=== PATIENT | male | born 1945 | race Caucasian/White ===

== ENCOUNTER 2021-05-05 12:00 | Day surgery (SDC) | payer MEDICARE, OTHER ==
[~2021-05-05] VITALS: Ht 185.4 cm; Wt 97.8 kg
[~2021-05-05 12:00] MED LIST: PERCOCET 7.5-31 EACH PO; ZIAC 5-6.25 MG1 TAB PO
--- NOTE | 2021-05-05 14:46 | NUR ---
05/05/21 1446 Zayra Tenorio 1441-PATIENT ARRIVED TO PACU ON 2L NC RR EVEN LAYING LEFT LATERAL. PATIENT DROWSY AWAKE DENIES PAIN OR NAUSEA. ABDOMEN SOFT ENCOURAGED TO PASS GAS. IVF INFUSING. PATIENT DOZES BACK TO SLEEP.
--- NOTE | 2021-05-07 11:23 | OR ---
[facility] [address], [place] [address] Signed DATE OF OPERATION: 05/05/2021 SURGEON: Josefina Velez MD PREOPERATIVE DIAGNOSIS: History of colonic polyps; here for surveillance colonoscopy. POSTOPERATIVE DIAGNOSES: 1. Polyps x3. 2. Diverticulosis, sigmoid and left colon. PROCEDURES: Total colonoscopy to cecum with cold morcellation polypectomy x3. ANESTHESIA: Intravenous sedation with fentanyl 100 mcg and Versed 5 mg. INDICATIONS FOR THE PROCEDURE: This 76-year-old white man is a patient of Dr. Vasquez and is the of Kathryn Moya MD, [facility] radiologist. The patient underwent colonoscopy in [place], [place] three years ago and two polyps were excised at least. Review of his operative note shows that he had hot snare polypectomy of two cecal polyps and polypectomies elsewhere in the colon. The patient does have distant history of prostate resection for prostate carcinoma in 2003 and has no evidence of recurrence. He is here for surveillance colonoscopy, understand the risks of bleeding, infection, and perforation. FINDINGS: The prep was excellent. Complete colonoscopy was undertaken to the cecum. There was most three, more probably two small polyps, all excised completely with cold morcellation technique. Diverticulosis was noted of the sigmoid and left colon. There were no complications. DESCRIPTION OF PROCEDURE: The patient was brought to the endoscopy suite and placed in lateral decubitus position, given intravenous sedation to the point of slurred speech and nystagmus with full cardiopulmonary monitoring. Digital rectal examination was normal. An Olympus video colonoscope was passed into the rectum and manipulated into the sigmoid, where diverticular changes were noted. The scope was advanced beyond this Electronically Signed By: JOSEFINA VELEZ MD 05/07/21 1123 PATIENT NAME: THOM MOYA OPERATIVE REPORT DATE OF : 47 REPORT #: [id number] PHYSICIAN: JOSEFINA VELEZ MD PCP: GADIEL VASQUEZ MD REPORT IS CONFIDENTIAL AND NOT TO BE RELEASED WITHOUT AUTHORIZATION [facility] [address] [place], [place] [address] Signed ultimately to the cecum. The ileocecal valve and appendiceal orifice were normal. Scope was withdrawn. Examination showed in the mid ascending colon, a small sessile polyp, this was excised with single morcellation biopsy and passed for pathology. The scope was further withdrawn and in the proximal descending colon there was a small sessile polyp, similarly excised. Further withdrawal showed a mucosal lesion, which was of uncertain etiology, possibly hyperplasia only, it was excised as well. Diverticula were once again seen in the sigmoid colon. The scope was withdrawn to the rectum. There were few possible arteriovenous malformation changes, but nothing significant really. Retroflexed view showed no sign of internal hemorrhoidal changes. Scope was straightened, withdrawn, and removed. The patient was taken to the recovery room in good condition. CONCLUDING DIAGNOSIS: Polyps x3. PLAN: Recommend repeat colonoscopy in 3-5 years or sooner if clinically indicated. Recommend high-fiber diet as well regarding the diverticulosis. MD KIMI Kaiser/ALEYDA /[id number] cc: MD Gadiel Cabello MD Patrick G McBee, MD Copies: KATHRYN MOYA MD, RUSSELL BARR MD Electronically Signed By: JOSEFINA VEELZ MD 05/07/21 1123 PATIENT NAME: THOM MOYA OPERATIVE REPORT DATE OF : 47 REPORT #: [id number] PHYSICIAN: JOSEFINA VELEZ MD PCP: GADIEL VASQUEZ MD REPORT IS CONFIDENTIAL AND NOT TO BE RELEASED WITHOUT AUTHORIZATION [address] [address] Signed CADY EVLEZ MD ~ Electronically Signed By: JOSEFINA VELEZ MD 05/07/21 1123 PATIENT NAME: THOM MOYA OPERATIVE REPORT DATE OF : 47 REPORT #: [id number] PHYSICIAN: JOSEFINA VELEZ MD PCP: GADIEL VASQUEZ MD REPORT IS CONFIDENTIAL AND NOT TO BE RELEASED WITHOUT AUTHORIZATION
== END 2021-05-05 15:25 | disposition home or self-care (01) ==
LOC: DS 12:00 → OPS 12:00 → DS 13:00 → OPS 15:25
PROVIDERS: ATTEND Surgery
PROC: 0DBM8ZZ Excision of Descending Colon, Via Natural or Artificial Opening Endoscopic (ICD-10-PCS; 2021-05-05)
PROC: 0DBK8ZZ Excision of Ascending Colon, Via Natural or Artificial Opening Endoscopic (ICD-10-PCS; principal; 2021-05-05 13:00)
DX: Z12.11 Encounter for screening for malignant neoplasm of colon (principal); D12.4 Benign neoplasm of descending colon; D12.2 Benign neoplasm of ascending colon; K57.30 Diverticulosis of large intestine without perforation or abscess without bleeding; I10 Essential (primary) hypertension; Z85.46 Personal history of malignant neoplasm of prostate; Z90.79 Acquired absence of other genital organ(s)
CPT/HCPCS: 88305; 99153; G0500; J2250; J3010; J7121

== ENCOUNTER 2024-04-29 10:03 | Day surgery (SDC) | payer MEDICARE, OTHER ==
[~2024-04-29] VITALS: Ht 185.4 cm; Wt 81.8 kg
[~2024-04-29 10:03] MED LIST changes: +ADULT ASPIRIN R81 MG PO; +IBLOOD GLUCOSE TEST STRIP 1 EA TEST VI PRN; +LACTATED RINGER'S 1,000 ML IV SCH; +LIDOCAINE HCL 1% 5 ML SDV INJ ONE; +LIPITOR40 MG PO; +MIDAZOLAM HCL 5 MG/5 ML VIAL IV PRN; +fentaNYL citrate 100 MCG/2 ML VIAL IV PRN
[2024-04-29 10:22] VITALS: BP 123/75
[2024-04-29] MEDS ORDERED: MIDAZOLAM HCL 5 MG/5 ML VIAL ONE (10:47)
[2024-04-29] MEDS ORDERED: fentaNYL citrate 100 MCG/2 ML VIAL ONE (10:48)
--- NOTE | 2024-04-29 11:58 | NUR ---
04/29/24 1158 Sheets,Rose Marie 1153 PT ARRIVED TO PACU ON 3L VIA NC, PT WAKES EASILY AND DENIES CONCERNS. PLAN OF CARE DISCUSSED. PT ENCOURAGED TO PASS GAS NEEDED.
[2024-04-29 12:14] VITALS: BP 124/76
--- NOTE | 2024-04-29 14:12 | OR ---
[facility] [address], [place] [address] Signed DATE OF OPERATION: 04/29/2024 SURGEON: Josefina Velez MD PREOPERATIVE DIAGNOSIS: History of tubular adenomas 2021. POSTOPERATIVE DIAGNOSES: 1. Sigmoid diverticulosis. 2. Small polyp, right colon. PROCEDURE: Total colonoscopy to cecum with cold morcellation polypectomy x1. ANESTHESIA: Intravenous sedation fentanyl 100 mcg, Versed 4.5 mg. INDICATION: This 79-year-old white man is a patient of Dr. Vasquez and of Dr. Peggy Moya. He underwent colonoscopy in 2021 where he was found to have three tubular adenomas. He has no current symptoms of bleeding, diarrhea, or constipation. He is known to have diverticula as well. He has no family history of colon cancer. He is admitted at this time to undergo surveillance colonoscopy. He understand the risk of bleeding, infection, and perforation. FINDINGS: The prep was adequate. Complete colonoscopy was undertaken of the cecum with full intubation of the cecum. He had a small flat polyp of the right colon which was excised with cold morcellation technique. The remaining colon was normal except for diverticular change of the sigmoid and left colon. DESCRIPTION OF PROCEDURE: The patient was brought to the endoscopy suite and placed in lateral decubitus position, given intravenous sedation to the point of slurred speech and nystagmus. Digital rectal examination was normal. An Olympus video colonoscope was passed in the rectum and manipulated into the sigmoid where numerous diverticula were seen. The scope was ultimately advanced beyond this to the right colon where a small flat adenomatous appearing polyp was noted. This was excised completely with cold morcellation technique. Scope was further advanced Electronically Signed By: JOSEFINA VELEZ MD 04/29/24 1412 PATIENT NAME: THOM MOYA OPERATIVE REPORT DATE OF : 47 REPORT #: [id number] PHYSICIAN: JOSEFINA VELEZ MD PCP: GADIEL VASQUEZ MD REPORT IS CONFIDENTIAL AND NOT TO BE RELEASED WITHOUT AUTHORIZATION [facility] [address], [place] [address] Signed ultimately intubating the cecum itself. The ileocecal valve and appendiceal orifice were normal. Scope was withdrawn from that point and examination throughout showed no sign of abnormality other than the diverticula previously noted. Retroflexed view of the rectum was normal. Scope was straightened, withdrawn and removed. The patient was taken to the recovery room in good condition. CONCLUDING DIAGNOSIS: Right-sided colon polyp and diverticulosis. PLAN: Recommend repeat colonoscopy in seven years, sooner if symptoms should develop. Maintain high-fiber diet as well. He will return to the ongoing care of Dr. Vasquez. MD KIMI Kaiser/HANNYL /[id number] cc: Dr. Vasquez Copies: ~ Electronically Signed By: JOSEFINA VELEZ MD 04/29/24 1412 PATIENT NAME: THOM MOYA OPERATIVE REPORT DATE OF : 47 REPORT #: [id number] PHYSICIAN: JOSEFINA VELEZ MD PCP: GADIEL VASQUEZ MD REPORT IS CONFIDENTIAL AND NOT TO BE RELEASED WITHOUT AUTHORIZATION
--- NOTE | 2024-04-30 14:10 | PATH ---
[facility] [address] [facility] [place], [place] [address] Signed SPECIMEN(S): A ASCENDING POLYP SPECIMEN SOURCE: A. ASCENDING POLYP CLINICAL HISTORY: History of colon polyps, diverticulosis FINAL PATHOLOGIC DIAGNOSIS: Colon, ascending, polypectomy: - Sessile serrated polyp BRP MICROSCOPIC EXAMINATION: Histologic sections of all submitted blocks are examined by light microscopy. These findings, together with the gross examination, support the pathologic diagnosis. GROSS DESCRIPTION: The specimen, labeled and designated "Griffin, ascending polyp," is received in formalin and consists of two silva soft tissue fragments, ranging from 0.2-0.3 cm. Entirely submitted in (A1). VB (under the direct supervision of a pathologist) The Gross Description was prepared using a voice recognition system. The report was reviewed for accuracy; however, sound-alike word errors, addition and/or deletions may occur. If there is any question about this report, please contact Client Services. ADDITIONAL NOTES: Immunohistochemical and/or in situ hybridization studies if performed in this case included appropriate positive controls that reacted as expected. This test was developed and its performance characteristics determined by [facility]. It has not been cleared or approved by the U.S. Food and Drug Administration. The FDA has determined that such clearance or approval is not necessary. This test is used for clinical purposes. It should not be regarded as investigational or for research. [facility] is certified under the Clinical Laboratory Improvement Amendments of 1988 (CLIA) as qualified to perform high complexity clinical laboratory testing. PATIENT NAME: THOM NLUL PATHOLOGY DATE OF : 47 REPORT #: [id number] PHYSICIAN: ADRIAN MANZANARES PCP: GADIEL LACEY MD REPORT IS CONFIDENTIAL AND NOT TO BE RELEASED WITHOUT AUTHORIZATION [facility] [address] [place], [place] [address] Signed PERFORMING LABORATORY: Technical component was performed by [facility], [address] [place] [address] (CLIA# [id number]). Professional interpretation was performed by [facility] [place] [address] (CLIA#: [id number]). Diagnostician: Espinoza Capellan MD Pathologist Electronically Signed 04/30/2024 Copies: ~ PATIENT NAME: THOM NULL PATHOLOGY DATE OF : 47 REPORT #: [id number] PHYSICIAN: ADRIAN MANZANARES PCP: GADIEL LACEY MD REPORT IS CONFIDENTIAL AND NOT TO BE RELEASED WITHOUT AUTHORIZATION
== END 2024-04-29 12:33 | disposition home or self-care (01) ==
LOC: DS 10:03
PROVIDERS: ATTEND Surgery
PROC: 0DBF8ZX Excision of Right Large Intestine, Via Natural or Artificial Opening Endoscopic, Diagnostic (ICD-10-PCS; principal; 2024-04-29 11:00)
DX: Z12.11 Encounter for screening for malignant neoplasm of colon (principal); K63.5 Polyp of colon; K57.30 Diverticulosis of large intestine without perforation or abscess without bleeding; I10 Essential (primary) hypertension; Z86.73 Personal history of transient ischemic attack (TIA), and cerebral infarction without residual deficits; Z90.79 Acquired absence of other genital organ(s); Z79.899 Other long term (current) drug therapy
CPT/HCPCS: 88305; 99153; G0500; J2250; J3010; J7121